=== PATIENT | male | born 1970 | race African-American/Black ===

== ENCOUNTER → 2020-06-21 | Outpatient (CLI) | payer OTHER ==
[2016-06-01 18:50] VITALS: BP 147/77
[~2020-06-21] MED LIST: HYDR-3164 PO
--- NOTE | 2020-06-21 12:55 | RAD ---
L-spine 2 views INDICATION: Back pain COMPARISON: None FINDINGS: 5 lumbar type vertebrae in anatomic alignment. There is normal mineralization with no fracture or aggressive osseous lesions. There is fusion of L5 on S1 and marked disc space narrowing at L4 and L5. The facet joints are intact. No bony central canal narrowing is apparent. Sacroiliac joints reveal no additional unexpected findings. IMPRESSION: Lower lumbar spinal degenerative spondylosis, most conspicuous at L4-L5 in the setting of L5-S1 fusion. No malalignment, fracture or aggressive osseous lesions.. Electronically signed by: Pérez Schmidt MD (06/21/2020 12:52 PM) [id number]
== END | disposition home or self-care (01) ==
LOC: RAD 08:08
PROVIDERS: ATTEND Family Medicine
DX: M47.816 Spondylosis without myelopathy or radiculopathy, lumbar region (principal); M43.27 Fusion of spine, lumbosacral region; M48.061 Spinal stenosis, lumbar region without neurogenic claudication
CPT/HCPCS: 72100